=== PATIENT | female | born 1995 | race Caucasian/White ===

== ENCOUNTER 2017-12-31 10:04 | Emergency (ER) | payer OTHER ==
[2017-12-31] MEDS ORDERED: Adacel Vial IM ONE ×2 (10:20→10:24)
--- NOTE | 2017-12-31 10:20 | ERPHSYRPT ---
- History of Present Illness Time Seen by Provider: 12/31/17 10:09 Source: patient Exam Limitations: no limitations Physician History: The patient is a 22-year-old female complaining that she passed out after giving blood for laboratory test at [facility]. As she walked out of the laboratory into the main hallway she sat down briefly because she felt dizzy. She then got up and walked to the main entrance and sat down again for dizziness. The last thing she remembers was getting up. Witnesses state that she stumbled forward and fell against the door of the lobby, hitting her head and hitting her palm of her right hand. She quickly woke up and stated that her hand was hurting and that the right side of her for head was hurting. She was in the laboratory getting tests for possible Accutane treatment. She's had no other episodes of syncope in the past. This morning she has not had anything to eat or drink prior to the episode. She now feels fine upon examination in the ER. She declines any workup except a tetanus vaccination for the abrasion on her right palm. Occurred: just prior to arrival Reason for Fall: fainted Injuries/Pain Location: head, upper extremity (right hand) Loss of Consciousness: brief (seconds) Quality: aching Severity of Pain-Max: mild Severity of Pain-Current: mild Modifying Factors: Improves With: nothing Allergies/Adverse Reactions: Penicillins Allergy (Verified 04/18/16 14:06) Home Medications: No Reportable Medications [No Reported Medications] 04/13/15 [History] Hx Tetanus, Diphtheria Vaccination/Date Given: Yes Hx Influenza Vaccination/Date Given: No Hx Pneumococcal Vaccination/Date Given: No - Review of Systems Constitutional: No Fever, No Chills Eyes: No Symptoms Ears, Nose, & Throat: No Symptoms Respiratory: No Cough, No Dyspnea Cardiac: No Chest Pain, No Edema, No Syncope Abdominal/Gastrointestinal: No Abdominal Pain, No Nausea, No Vomiting, No Diarrhea Genitourinary Symptoms: No Dysuria Musculoskeletal: Fall, Injury Skin: No Rash Neurological: No Dizziness, No Focal Weakness, No Sensory Changes Psychological: No Symptoms Endocrine: No Symptoms Hematologic/Lymphatic: No Symptoms Immunological/Allergic: No Symptoms All Other Systems: Reviewed and Negative - Past Medical History Pertinent Past Medical History: No Neurological History: No Pertinent History ENT History: No Pertinent History Cardiac History: No Pertinent History Respiratory History: No Pertinent History Endocrine Medical History: No Pertinent History Musculoskeletal History: No Pertinent History GI Medical History: No Pertinent History History: Other Female Reproductive Disorders: Other - Past Surgical History Past Surgical History: No Neuro Surgical History: No Pertinent History Cardiac: No Pertinent History Respiratory: No Pertinent History Gastrointestinal: No Pertinent History Genitourinary: No Pertinent History Musculoskeletal: No Pertinent History Female Surgical History: No Pertinent History - Social History Smoking Status: Current every day smoker How long have you smoked: yrs Exposure to second hand smoke: No Drug Use: none Patient Lives Alone: No Significant Family History: other (no psych history) - Hersey Coma Score Best Eye Response ([place]): (4) open spontaneously Best Verbal Response ([place]): (5) oriented Best Motor Response ([place]): (6) obeys commands Hersey Total: 15 - Physical Exam General Appearance: no apparent distress, alert Head Injury: contusions, tenderness (right forehead) Eye Exam: PERRL/EOMI ENT Exam: airway nml Neck Exam: normal inspection, c-collar in place (c collar removed after pt denies neck pain and declines further workup.), No tenderness Respiratory/Chest Exam: normal breath sounds, No chest tenderness, No respiratory distress Cardiovascular Exam: normal heart sounds, regular rate/rhythm Gastrointestinal Exam: soft, No tenderness, No distention, No guarding, No ecchymosis Rectal Exam: not done Back Exam: normal inspection, No vertebral tenderness Extremity Exam: normal inspection, normal range of motion, pelvis stable, No deformities Neurologic Exam: alert, oriented x 3, cooperative, sensation nml, No motor deficits Skin Exam: normal color, abrasion (abrasion to palm of right hand), other (mild erythema to right forehead at site of impact with hospital door.) - Progress Progress: improved Counseled pt/family regarding: diagnosis - Departure Time of Disposition: 10:30 Departure Disposition: Home Clinical Impression: Fainting spell Condition: Stable Critical Care Time: No Referrals: CONSTANTINE HICKS MD [Primary Care Provider] - Additional Instructions: You had a fainting spell after blood work at [facility]. You hit your head on the door. You also have an abrasion to your right hand. You were given a tetanus vaccination. Further workup was discussed with you and your declined. Take Tylenol and ibuprofen as needed for pain. Apply ice to areas of pain as needed. Follow-up with your primary medical doctor as needed.
[2017-12-31 10:23] VITALS: BP 108/56
[2017-12-31 11:09] VITALS: PULSE 74; O2SAT 98
== END 2017-12-31 11:09 | disposition home or self-care (01) ==
LOC: ED 10:04
DX: R55 Syncope and collapse (principal); R51 Headache; M79.641 Pain in right hand; W18.09XA Striking against other object with subsequent fall, initial encounter; W18.39XA Other fall on same level, initial encounter; Y92.238 Other place in hospital as the place of occurrence of the external cause
CPT/HCPCS: 90471; 90715; 99283

== ENCOUNTER 2019-01-24 06:34 | Day surgery (SDC) | payer OTHER ==
[2019-01-24] MEDS ORDERED: Lactated Ringers 1,000 ML IV ONE ×3 (06:46→09:16)
[2019-01-24] MEDS ORDERED: Lactated Ringers 1,000 ML IV SCH ×2 (07:00→10:30)
[2019-01-24] MEDS ORDERED: SUBLIMAZE 100 MCG/2 ML ONE ×2 (07:19→09:41)
[2019-01-24] MEDS ORDERED: DIPRIVAN 200 MG/20 ML IV ONE (07:19)
[2019-01-24] MEDS ORDERED: Decadron 4 MG INJ ONE (08:46)
[2019-01-24] MEDS ORDERED: TORAdol 30 mg Injection ONE (08:46)
[2019-01-24] MEDS ORDERED: Zofran 4 MG/2 ML VIAL ONE (08:46)
[2019-01-24] MEDS ORDERED: PHENYLEPHRINE HCL ONE (09:10)
[2019-01-24] MEDS ORDERED: Pitocin 10 UNITS/ML ONE (09:11)
[2019-01-24] MEDS ORDERED: ROBINUL ONE (09:19)
[2019-01-24 09:46] LABS: Hematocrit 28.6 % (35-47); Hemoglobin 9.7 gm/dl (12.0-16.0)
[2019-01-24] MEDS ORDERED: NORCO 5/325 MG PO PRN (10:37)
[2019-01-24 12:44] LABS: Hematocrit 26.2 % (35-47); Hemoglobin 9.4 gm/dl (12.0-16.0); Mean Cell Volume 91.9 fl (78-100); Mean Corpuscular Hgb Concent. 35.9 g/dl (32-36); Mean Platelet Volume 9.6 fl (6-9.5); Platelet Count 242 K/mm3 (150-450); Red Blood Count 2.85 M/mm3 (4.1-5.4); Red Cell Distribution Width 12.8 % (11.5-14.0); White Blood Count 19.7 K/mm3 (4.0-10.5)
[2019-01-24 12:45] LABS: Mean Corpuscular Hemoglobin 32.9 pg (26-32)
--- NOTE | 2019-01-24 12:55 | OP ---
SURGERY DATE/TIME: 01/24/2019 0841 PREOPERATIVE DIAGNOSIS: Missed . POSTOPERATIVE DIAGNOSES: 1) Missed . 2) Hemorrhage. PROCEDURE: Suction dilatation and curettage. SURGEON: Wm Roblero M.D. ANESTHESIA: General by Jono Yuan CRNA. ESTIMATED BLOOD LOSS: Greater than 1 liter. SPECIMEN: Products of conception. DESCRIPTION OF PROCEDURE: After informed written consent was obtained, the patient was taken to the operating room. She underwent general anesthesia and was prepped and draped in dorsal lithotomy position. A weighted speculum was inserted into the vagina and then the anterior free edge of the cervix was grasped with a single tooth tenaculum. Uterine sound was used and then Hegar dilators were used to dilated up size 30 to accommodate a suction tip catheter. A 9 Czech suction tip catheter was then used to evaluate the uterine contents. There were some technical difficulties with the suction device during the procedure. It appears as though there was large amounts of uterine products removed from the uterine cavity, more than expected and significant hemorrhage during this time period. After the technical difficulties with the suction device were resolved, the remainder of the contents of the uterus were effectively removed revealing normal gritty texture upon curettage of the uterine cavity. Once that was achieved the bleeding improved and the patient required some extra fluid administration due to some mild hypotension during the procedure. Her blood pressure was stable following completion of the procedure. The uterine contents were observed with butler tissue appearance consistent with products of conception and significant blood clots and other tissue present. Bimanual massage was performed which showed a firm uterus with minimal bleeding postoperatively. The abdomen was soft following completion of the procedure. The patient was transferred to the recovery room with orders to check hemoglobin and hematocrit post-procedure and will be observed closely at this time.
--- NOTE | 2019-01-24 13:29 | XRAY ---
Indication: Postop hypotension. Status post D&C for demise. Multiple contiguous axial images obtained through the abdomen and pelvis without contrast as ordered. Comparison: None Lung bases are clear. Heart is not enlarged. Stomach is mildly distended with fluid. Noncontrasted stomach and bowel loops appear nonobstructed. Appendix not seen. Mild diffuse scattered colonic fecal debris throughout. Uterus is enlarged presumed from recent gravid status. Endometrial cavity appears thickened with multiple ovoid hyperdensities, largest 3.6 x 2 cm probable blood products. Retained products of conception not completely excluded. Tiny cul-de-sac fluid. No free air. Remaining liver, gallbladder, pancreas, spleen, adrenal glands, kidneys, ureters, bladder, and aorta appear unremarkable for noncontrast exam. Osseous structures intact. No ventral or inguinal hernias. Impression: 1. Enlarged uterus presumed related to recent gravid status. Endometrial cavity thickening with multiple hypodensities probably blood products. Cannot completely exclude retained products of conception. 2. Tiny cul-de-sac fluid. 3. Mild fecal stasis without obstruction. CT DI 11.68
[2019-01-24] MEDS: Lactated Ringers 1,000 ML IV SCH ×2 (14:27→22:43)
[2019-01-24] MEDS ORDERED: ZOFRAN ODT 4 MG PO PRN (16:05)
[2019-01-24] MEDS: NORCO 5/325 MG PO PRN (16:44)
[2019-01-24] MEDS ORDERED: ROCEPHIN 1 Gm-D5w 50 ml Bag** 1 G/50 ML IVPB IV SCH (17:00)
[2019-01-25] MEDS: NORCO 5/325 MG PO PRN (02:18)
[2019-01-25 06:03] LABS: BASOPHIL % 0.1 % (0.0-0.4); Basophil (Absolute #) 0.01 (0-0.4); Eosinophil % 1.3 % (0.00-5.0); Eosinophil (Absolute #) 0.12 (0-0.5); Granulocyte Absolute (ANC) 5.42 (1.4-6.9); Granulocytes % 58.1 % (36.0-66.0); Hematocrit 20.8 % (35-47); Lymphocyte (Absolute #) 3.09 (1.0-4.6); Lymphocytes % 33.1 % (24.0-44.0); Mean Cell Volume 93.3 fl (78-100); Mean Corpuscular Hemoglobin 31.8 pg (26-32); Mean Corpuscular Hgb Concent. 34.1 g/dl (32-36); Mean Platelet Volume 10.2 fl (6-9.5); Monocyte (Absolute #) 0.69 (0.0-1.3); Monocytes % 7.4 % (0.0-12.0); Platelet Count 184 K/mm3 (150-450); Red Blood Count 2.23 M/mm3 (4.1-5.4); Red Cell Distribution Width 12.8 % (11.5-14.0); White Blood Count 9.3 K/mm3 (4.0-10.5)
[2019-01-25] MEDS: Lactated Ringers 1,000 ML IV SCH (06:45)
[2019-01-25 07:27] LABS: Hemoglobin 7.1 gm/dl (12.0-16.0)
[2019-01-25 07:53] VITALS: BP 92/50; PULSE 89; O2SAT 98
--- NOTE | 2019-01-25 08:45 | PCM.SSS ---
History of Present Illness - Chief Complaint Chief Complaint: Sponateous History of Present Illness: is a 23 year old female who had a spontaneous with dilation and currettage on 01/24, she had significant hemorrhage during the procedure so was hypotensive and lightheaded following the procedure so was admitted, she is feeling much better today. pain is mild cramping and she is tolerating po intake , no fever, bleeding is minimal. she did have significant drop in h/h but no transfusion required, some exacerbation by large amounts of fluids given for hypotension as well. - Review of Systems Constitutional: No Fever, No Chills Respiratory: No Cough, No Short Of Breath Cardiac: No Chest Pain, No Edema, No Syncope Abdominal/Gastrointestinal: No Abdominal Pain, No Nausea, No Vomiting, No Diarrhea Genitourinary Symptoms: Vaginal Bleeding (mild), No Dysuria, No Frequency, No Hematuria Skin: No Rash All Other Systems: Reviewed and Negative Medications & Allergies Home Medications: Home Medication List Ondansetron ODT 4 MG [Zofran Odt 4 mg] 4 mg PO Q6H PRN PRN 01/23/19 [ History Confirmed 01/24/19] Vits W-Ca,Fe,FA(<1Mg) [] 1 each PO DAILY 01/23/19 [History Confirmed 01/24/19] Ferrous Sulfate 325 mg [Feosol 325 mg] 325 mg PO BID #60 tablet 01/25/19 [ Rx] Hydrocodone/APAP 5-325 Tab^^^ [[place] 5-325 Tablet^^^] 1 tab PO Q6HPRN PRN #15 tablet MDD 6 01/25/19 [Rx] Levofloxacin [Levaquin] 500 mg PO DAILY #7 tablet 01/25/19 [Rx] Allergies/Adverse Reactions: Allergies Allergy/AdvReac Type Severity Reaction Status Date / Time amoxicillin Allergy Verified 01/24/19 06:58 Penicillins Allergy Verified 01/24/19 06:58 - Past Medical History Past Medical History: No Neurological History: No Pertinent History ENT History: No Pertinent History Cardiac History: No Pertinent History Respiratory History: No Pertinent History Endocrine Medical History: No Pertinent History Musculoskelatal History: No Pertinent History GI Medical History: No Pertinent History History: Other Reproductive Disorders: Other - Female History Are you now?: No - Past Surgical History Past Surgical History: No Neuro Surgical History: No Pertinent History Cardiac History: No Pertinent History Respiratory Surgery: No Pertinent History GI Surgical History: No Pertinent History Genitourinary Surgical Hx: No Pertinent History Musculskeletal Surgical Hx: No Pertinent History Female Surgical History: No Pertinent History - Social History Smoking Status: Current every day smoker How long have you smoked: yrs Exposure to second hand smoke: No Alcohol: None Drug Use: none Significant Family History: other (no psych history) - Physical Exam Vital Signs: Vital Signs - 24 hr Temp Pulse Resp BP BP Pulse Ox 01/25/19 07:52 97.4 F 89 18 92/50 98 01/25/19 04:00 98.2 F 84 20 92/53 96 01/25/19 00:00 98.1 F 76 18 100/52 99 01/24/19 19:47 98.2 F 88 17 91/49 98 01/24/19 15:10 98.7 F 74 18 121/51 99 01/24/19 14:25 98.7 F 90 18 95/63 98 01/24/19 14:10 86 18 103/56 99 01/24/19 14:00 98.7 F 82 18 99/53 98 01/24/19 13:30 99 F 103 H 18 93/48 98 01/24/19 13:08 99.4 F 104 H 18 99/57 98 01/24/19 12:35 99.2 F 86 18 108/60 98 01/24/19 12:20 95 H 18 90/55 100 01/24/19 11:55 98 F 109 H 18 102/59 100 01/24/19 11:48 98.1 F 102 H 18 108/71 100 01/24/19 11:29 85 19 104/54 100 01/24/19 11:15 80 18 108/59 100 01/24/19 11:00 98 F 83 18 102/51 100 01/24/19 10:45 95 H 18 103/49 98 01/24/19 10:35 98.3 F 87 18 95/51 98 01/24/19 10:30 90 18 101/49 99 01/24/19 10:15 98.2 F 76 18 108/55 97 General Appearance: no apparent distress, alert Neurologic Exam: alert, oriented x 3, cooperative, normal mood/affect, nml cerebellar function, nml station & gait, sensation nml, No motor deficits Eye Exam: PERRL/EOMI, eyes nml inspection Ears, Nose, Throat Exam: normal ENT inspection, TMs normal, pharynx normal, moist mucous membranes Respiratory Exam: normal breath sounds, lungs clear, No respiratory distress Cardiovascular Exam: regular rate/rhythm, normal heart sounds, normal peripheral pulses Gastrointestinal/Abdomen Exam: soft, normal bowel sounds, No tenderness, No mass Extremity Exam: normal inspection, normal range of motion, pelvis stable Skin Exam: normal color, warm, dry, No rash Results - Labs Lab/Micro Results: Lab Results-Last 24 Hours 01/24/19 01/24/19 01/25/19 Range/Units 09:30 12:40 05:39 WBC 19.7 H 9.3 (4.0-10.5) K/mm3 RBC 2.85 L 2.23 L (4.1-5.4) M/mm3 Hgb 9.7 L D 9.4 L 7.1 L D (12.0-16.0) gm/dl Hct 28.6 L 26.2 L 20.8 L (35-47) % MCV 91.9 93.3 (78-100) fl MCH 32.9 H 31.8 (26-32) pg MCHC 35.9 34.1 (32-36) g/dl RDW 12.8 12.8 (11.5-14.0) % Plt Count 242 184 (150-450) K/mm3 MPV 9.6 H 10.2 H (6-9.5) fl Gran % 58.1 (36.0-66.0) % Eos # (Auto) 0.12 (0-0.5) Absolute Lymphs (auto) 3.09 (1.0-4.6) Absolute Monos (auto) 0.69 (0.0-1.3) Lymphocytes % 33.1 (24.0-44.0) % Monocytes % 7.4 (0.0-12.0) % Eosinophils % 1.3 (0.00-5.0) % Basophils % 0.1 (0.0-0.4) % Absolute Granulocytes 5.42 (1.4-6.9) Basophils # 0.01 (0-0.4) - Radiology Impressions Radiology Exams & Impressions: Radiology Procedures Category Date Time Status ABDOMEN AND PELVIS W/0 CONTRAS [CT] Stat Exams 01/24/19 12:34 Completed Assessment/Plan (1) Spontaneous Current Visit: Yes Status: Acute Assessment & Plan: pathology pending, doing much better today. advised if any severe pain, fever, heavy bleeding or other complaints needs to call or come to ER immediately Code(s): O03.9 - COMPLETE OR UNSP SPONTANEOUS WITHOUT COMPLICATION (2) S/P dilatation and curettage Current Visit: Yes Status: Acute Code(s): Z98.890 - OTHER SPECIFIED POSTPROCEDURAL STATES (3) Hypotension Current Visit: Yes Status: Acute Code(s): I95.9 - HYPOTENSION, UNSPECIFIED (4) Anemia associated with acute blood loss Current Visit: Yes Status: Acute Assessment & Plan: home on ferrous sulfate, no symptoms today so will not transfuse Code(s): D62 - ACUTE POSTHEMORRHAGIC ANEMIA Hospital Summary - Vitals & Intake/Output Vital Signs: Vital Signs Temperature 97.4 F 01/25/19 07:52 Pulse Rate 89 01/25/19 07:52 Respiratory Rate 18 01/25/19 07:52 Blood Pressure 92/50 01/25/19 07:52 O2 Sat by Pulse Oximetry 98 01/25/19 07:52 Intake & Output: Intake & Output 01/22/19 01/23/19 01/24/19 01/25/19 11:59 11:59 11:59 11:59 Intake Total 4250 2318 Output Total 3450 Balance 4250 -1132 Weight 59.9 kg - Lab Result Diagrams: 01/25/19 05:39 Lab Results-Last 24 Hrs: Lab Results-Last 24 Hours 01/24/19 01/24/19 01/25/19 Range/Units 09:30 12:40 05:39 WBC 19.7 H 9.3 (4.0-10.5) K/mm3 RBC 2.85 L 2.23 L (4.1-5.4) M/mm3 Hgb 9.7 L D 9.4 L 7.1 L D (12.0-16.0) gm/dl Hct 28.6 L 26.2 L 20.8 L (35-47) % MCV 91.9 93.3 (78-100) fl MCH 32.9 H 31.8 (26-32) pg MCHC 35.9 34.1 (32-36) g/dl RDW 12.8 12.8 (11.5-14.0) % Plt Count 242 184 (150-450) K/mm3 MPV 9.6 H 10.2 H (6-9.5) fl Gran % 58.1 (36.0-66.0) % Eos # (Auto) 0.12 (0-0.5) Absolute Lymphs (auto) 3.09 (1.0-4.6) Absolute Monos (auto) 0.69 (0.0-1.3) Lymphocytes % 33.1 (24.0-44.0) % Monocytes % 7.4 (0.0-12.0) % Eosinophils % 1.3 (0.00-5.0) % Basophils % 0.1 (0.0-0.4) % Absolute Granulocytes 5.42 (1.4-6.9) Basophils # 0.01 (0-0.4) - Radiology Exams Ordered Rad Exams-Entire Visit: Radiology Procedures Category Date Time Status ABDOMEN AND PELVIS W/0 CONTRAS [CT] Stat Exams 01/24/19 12:34 Completed - Discharge Disposition: Home, Self-Care Condition: Stable Prescriptions: New Ferrous Sulfate 325 mg [Feosol 325 mg] 325 mg PO BID #60 tablet Levofloxacin [Levaquin] 500 mg PO DAILY #7 tablet Hydrocodone/APAP 5-325 Tab^^^ [[place] 5-325 Tablet^^^] 1 tab PO Q6HPRN PRN # 15 tablet MDD 6 PRN Reason: Pain Continue Ondansetron ODT 4 MG [Zofran Odt 4 mg] 4 mg PO Q6H PRN PRN PRN Reason: Nausea/Vomiting Vits W-Ca,Fe,FA(<1Mg) [] 1 each PO DAILY Follow up with: CONSTANTINE HICKS MD [Primary Care Provider] - 1 Week
[2019-01-25] MEDS ORDERED: NON-FORMULARY ITEM (Prenatal Vits W-Ca,Fe,Fa(<1mg) [Prenatal] 1 EACH) PO SCH (10:00)
[2019-01-25] MEDS ORDERED: THERAGRAN MULTIVITAMIN PO SCH (10:00)
== END 2019-01-25 10:01 | disposition home or self-care (01) ==
LOC: SDC 06:34 → MED SURG 15:44 → SDC 01-25 10:01
PROVIDERS: ATTEND Family Medicine
DX: O02.1 Missed abortion (principal); O08.1 Delayed or excessive hemorrhage following ectopic and molar pregnancy; D62 Acute posthemorrhagic anemia; I95.9 Hypotension, unspecified
CPT/HCPCS: 36415; 74176; 85014; 85018; 85025; 85027; J0696; J1100; J1885; J2370; J2405; J2590; J2704; J3010; A9270-GY